=== PATIENT | male | born 1965 | race Caucasian/White ===

== ENCOUNTER 2020-09-14 15:30 | Emergency (ER) | payer OTHER ==
[~2020-09-14] VITALS: Ht 185.4 cm; Wt 97.5 kg
[2020-09-14] MEDS ORDERED: HYDROCHLOROTHIA25 MG PO (16:12)
[2020-09-14] MEDS ORDERED: CITALOPRAM HBR10 MG PO (16:12)
[2020-09-14] MEDS ORDERED: BAYER CHEWABLE81 MG PO (16:12)
[2020-09-14] MEDS ORDERED: COZAAR50 MG PO (16:12)
[2020-09-14] MEDS ORDERED: NAPROXEN500 M1 PO (16:13)
== END 2020-09-14 18:27 | disposition home or self-care (01) ==
LOC: ED 15:30
DX: D49.6 Neoplasm of unspecified behavior of brain (principal); R56.9 Unspecified convulsions; Z79.899 Other long term (current) drug therapy; Z79.82 Long term (current) use of aspirin
CPT/HCPCS: 70450; 70496; 70498; 80053; 85025; 85610; 85730; 99285-25; J1953; Q9967